=== PATIENT | male | born 1965 | race Caucasian/White ===

== ENCOUNTER 2018-03-21 10:00 | Day surgery (SDC) | payer OTHER ==
[2018-03-21] MEDS ORDERED: SOD CHLORIDE 0.9% 1,000 ML IV (10:30)
[2018-03-21] MEDS ORDERED: CEFAZOLIN 2 GM/50 ML (PMX) 50 ML IVPB (10:30)
[2018-03-21] MEDS ORDERED: BUPIVACAINE 0.25% (MPF) 30 ML INJ (11:38)
[2018-03-21] MEDS: BUPIVACAINE 0.5% (SDV) 30 ML INJ (12:17)
[2018-03-21] MEDS: LIDOCAINE 2% (MDV) 20 ML INJ (12:18)
[2018-03-21] MEDS ORDERED: MIDAZOLAM 1 MG/ML 2 ML INJ (12:41)
[2018-03-21] MEDS ORDERED: FENTAnyl 50 MCG/ML VIAL (12:41)
[2018-03-21] MEDS ORDERED: CEFAZOLIN 1 GM INJ (13:08)
[2018-03-21] MEDS ORDERED: hydrALAzine 20 MG INJ IV (13:30)
[2018-03-21] MEDS ORDERED: HYDROmorphONE 1 MG/5 ML IV SYRINGE IV ×2 (13:30)
[2018-03-21] MEDS ORDERED: DIPHENHYDRAMINE 50 MG INJ IV (13:30)
[2018-03-21] MEDS ORDERED: MEPERIDINE 25 MG INJ IV (13:30)
[2018-03-21] MEDS ORDERED: FENTAnyl 50 MCG/ML VIAL IV (13:30)
[2018-03-21] MEDS ORDERED: LABETALOL HCL 20MG INJ IV (13:30)
[2018-03-21] MEDS: HYDROCODONE/APAP (5/325) TAB PO (13:51)
== END 2018-03-21 15:00 | disposition home or self-care (01) ==
LOC: SDS 10:00
DX: R22.2 Localized swelling, mass and lump, trunk (principal); I10 Essential (primary) hypertension; E11.8 Type 2 diabetes mellitus with unspecified complications; Z79.84 Long term (current) use of oral hypoglycemic drugs
CPT/HCPCS: 14000; 82962; 88307